=== PATIENT | female | born 1960 | race Caucasian/White ===

== ENCOUNTER 2020-03-20 12:58 | Emergency (ER) | payer BC ==
[~2020-03-20] VITALS: Ht 165.1 cm; Wt 84.2 kg
[2020-03-20 13:20] VITALS: BP 127/89
[2020-03-20] MEDS ORDERED: AMPICILLIN/SULBACTAM 3 GM in SODIUM CHLORIDE 0.9% 100 ML IV ONE (14:00)
[2020-03-20 14:18] LABS: BASOPHILS % (AUTO) 1 % (0-1); EOSINOPHILS % (AUTO) 1 % (1-7); LYMPHOCYTES % (AUTO) 28 % (22-44); MEAN CORPUSCULAR HEMOGLOBIN 30.4 pg (27.0-34.8); MEAN CORPUSCULAR HGB CONC 33.4 g/dL (32.4-35.8); MONOCYTES % (AUTO) 15 % (2-9); NEUTROPHILS % (AUTO) 56 % (42-75); PLATELET COUNT 214 x10^3/uL (130-400); RED CELL DISTRIBUTION WIDTH 13.3 % (9.6-15.2)
[2020-03-20 14:20] LABS: MD NO
[2020-03-20 14:23] LABS: ANION GAP 4 mmol/L (5-15); CALCIUM 9.3 mg/dL (8.5-10.1); CHLORIDE 108 mmol/L (98-107); CREATININE 0.87 mg/dL (0.55-1.02)
[2020-03-20] MEDS ORDERED: FLUORESCEIN OPHTHALMIC 1 MG STRIP EACHEYE ONE (15:00)
[2020-03-20] MEDS ORDERED: FLUORESCEIN OPHTHALMIC 1 MG STRIP ONE (15:46)
== END 2020-03-20 16:18 | disposition home or self-care (01) ==
LOC: ED 14:37
DX: H60.12 Cellulitis of left external ear (principal); M54.2 Cervicalgia
CPT/HCPCS: 36415; 80048; 85025; 96365; 99284; J0295